=== PATIENT | female | born 1955 | race Caucasian/White ===

== ENCOUNTER → 2016-03-17 | Outpatient (CLI) | payer BC ==
--- NOTE | 2016-03-18 07:58 | MM ---
Reason for exam: screening (asymptomatic). Last mammogram was performed 1 year ago. History: Patient is postmenopausal, has history of high-risk lesion on a previous biopsy at age 47, and history of other cancer. Family history of breast cancer in maternal grandmother at age 72. Benign left mammotome panel of the left breast, May 09, 2008. High risk stereotactic core biopsy of the right breast, December 22, 2002. Core biopsy of the right breast. Excisional biopsy of the right breast. Took hormonal contraceptives for 3 years beginning at age 22. Took tamoxifen for 5 years beginning at age 48. Physical Findings: A clinical breast exam by your physician is recommended on an annual basis and results should be correlated with mammographic findings. MG Screening Mammo w CAD Bilateral CC and MLO view(s) were taken. Prior study comparison: March 06, 2015, right breast MG 3d work up w/cad RT. February 28, 2015, bilateral MG screening mammo w CAD. The breast tissue is extremely dense which could obscure a lesion on mammography. Finding: There is a 5 mm equal density (isodense), obscured oval mass in the right breast. Previous mammotome biopsy in the right and left breast. ASSESSMENT: Incomplete: need additional imaging evaluation, BI-RAD 0 RECOMMENDATION: Special view mammogram of the right breast. If lesion persists on supplemental views, image directed ultrasound is recommended. [facility] will attempt to contact patient to return for supplemental views and ultrasound if indicated.
== END | disposition home or self-care (01) ==
LOC: RADMAMWWP 08:33
PROVIDERS: ATTEND Obstetrics & Gynecology
DX: Z12.31 Encounter for screening mammogram for malignant neoplasm of breast (principal)

== ENCOUNTER → 2016-03-26 | Outpatient (CLI) | payer BC ==
--- NOTE | 2016-03-27 09:06 | MM ---
Reason for exam: additional evaluation requested from abnormal screening. Last mammogram was performed less than 1 month ago. History: Patient is postmenopausal, has history of high-risk lesion on a previous biopsy at age 47, and history of other cancer. Family history of breast cancer in maternal grandmother at age 72. Benign left mammotome panel of the left breast, May 09, 2008. High risk stereotactic core biopsy of the right breast, December 22, 2002. Core biopsy of the right breast. Excisional biopsy of the right breast. Took hormonal contraceptives for 3 years beginning at age 22. Took tamoxifen for 5 years beginning at age 48. Physical Findings: Nurse did not find any significant physical abnormalities on exam. MG Work Up Mamm w CAD RT CC and MLO view(s) were taken of the right breast. Prior study comparison: March 17, 2016, bilateral MG screening mammo w CAD. March 06, 2015, right breast MG 3d work up w/cad RT. The breast tissue is extremely dense which could obscure a lesion on mammography. No persistent density. These results were verbally communicated with the patient and result sheet given to the patient on 03/26/16. ASSESSMENT: Probably benign, BI-RAD 3 RECOMMENDATION: Follow-up diagnostic mammogram of the right breast in 6 months.
== END | disposition home or self-care (01) ==
LOC: RADMAMWWP 15:35
PROVIDERS: ATTEND Obstetrics & Gynecology
DX: R92.8 Other abnormal and inconclusive findings on diagnostic imaging of breast (principal)

== ENCOUNTER → 2016-06-15 | Outpatient (CLI) | payer BC | END | disposition home or self-care (01) | LOC: LABWHC1 14:11 | PROVIDERS: ATTEND Internal Medicine Endocrinology, Diabetes & Metabolism | DX: C73 Malignant neoplasm of thyroid gland (principal) | CPT/HCPCS: 36415; 84432; 84443; 86800 ==

== ENCOUNTER → 2016-09-30 | Outpatient (CLI) | payer BC ==
--- NOTE | 2016-09-30 11:07 | MM ---
Reason for exam: additional evaluation requested from prior study. Last mammogram was performed 6 months ago. History: Patient is postmenopausal, has history of other cancer at age 55, and has history of high-risk lesion on a previous biopsy at age 47. Family history of breast cancer in maternal grandmother at age 72. Benign left mammotome panel of the left breast, May 09, 2008. High risk stereotactic core biopsy of the right breast, December 22, 2002. Core biopsy of the right breast. Excisional biopsy of the right breast. Took hormonal contraceptives for 3 years beginning at age 22. Took tamoxifen for 5 years beginning at age 48. Physical Findings: Nurse did not find any significant physical abnormalities on exam. MG Diagnostic Mammo RT w CAD CC and MLO view(s) were taken of the right breast. Prior study comparison: March 26, 2016, right breast MG work up mamm w CAD RT. March 17, 2016, bilateral MG screening mammo w CAD. March 06, 2015, right breast MG 3d work up w/cad RT. The breast tissue is heterogeneously dense. This may lower the sensitivity of mammography. There are clips in the right breast consistent with known excisional biopsy. There is no discrete abnormality. These results were verbally communicated with the patient and result sheet given to the patient on 09/30/16. ASSESSMENT: Benign, BI-RAD 2 RECOMMENDATION: Return to routine screening mammogram schedule for both breasts. Back on schedule.
== END | disposition home or self-care (01) ==
LOC: RADMAMWWP 09:57
PROVIDERS: ATTEND Obstetrics & Gynecology
DX: R92.8 Other abnormal and inconclusive findings on diagnostic imaging of breast (principal)

== ENCOUNTER → 2016-11-17 | Outpatient (CLI) | payer BC | END | disposition home or self-care (01) | LOC: LABWHC1 07:22 | PROVIDERS: ATTEND Internal Medicine Endocrinology, Diabetes & Metabolism | DX: C73 Malignant neoplasm of thyroid gland (principal) | CPT/HCPCS: 36415; 84443 ==

== ENCOUNTER → 2016-12-01 | Outpatient (CLI) | payer BC ==
--- NOTE | 2016-12-01 12:24 | US ---
EXAMINATION TYPE: US thyroid st tissue head/neck DATE OF EXAM: 12/01/2016 COMPARISON: 07/02/2011 CLINICAL HISTORY: C73 Malignant Neoplasm of Thyroid. Thyroidectomy GLAND SIZE: Right Lobe: Surgically absent Left Lobe: Surgically absent NODULES RIGHT: # of nodules measured on right: 0 LEFT: # of nodules measured on left: 0 ISTHMUS: # of nodules measured in the isthmus: 0 Bilateral neck scanned, thyroid surgically absent. Lymph nodes noted bilaterally, largest on right = 1.3cm and 1.3cm on the left. IMPRESSION: Total thyroidectomy changes without evidence for residual thyroid tissue or mass. Lymph nodes as disc ussed.
== END | disposition home or self-care (01) ==
LOC: RADUSWWP 11:50
PROVIDERS: ATTEND Internal Medicine Endocrinology, Diabetes & Metabolism
DX: C73 Malignant neoplasm of thyroid gland (principal); E89.0 Postprocedural hypothyroidism
CPT/HCPCS: 76536

== ENCOUNTER → 2017-01-28 | Outpatient (CLI) | payer BC ==
--- NOTE | 2017-01-28 20:33 | US ---
EXAMINATION TYPE: US carotid duplex BILAT DATE OF EXAM: 01/28/2017 COMPARISON: NONE CLINICAL HISTORY: R42 VERTIGO. Vertigo, 3 episodes within 6 months EXAM MEASUREMENTS: RIGHT: Peak Systolic Velocity (PSV) cm/sec ----- Right CCA: 102.6 ----- Right ICA: 121.5 ----- Right ECA: 149.6 ICA/CCA ratio: 1.2 RIGHT: End Diastole cm/sec ----- Right CCA: 38.7 ----- Right ICA: 50.3 ----- Right ECA: 33.3 LEFT: Peak Systolic Velocity (PSV) cm/sec ----- Left CCA: 94.7 ----- Left ICA: 99.1 ----- Left ECA: 162.5 ICA/CCA ratio: 1.0 LEFT: End Diastole cm/sec ----- Left CCA: 35.2 ----- Left ICA: 51.2 ----- Left ECA: 38.1 VERTEBRALS (direction of flow): Right Vertebral: Antegrade Left Vertebral: Antegrade Rhythm: Normal Mild plaque bilateral bifurcations. Increased velocities bilateral ECA's. no evidence of significant stenosis IMPRESSION: 1. I DO NOT SEE EVIDENCE OF A HEMODYNAMICALLY SIGNIFICANT STENOSIS IN EITHER INTERNAL OR COMMON CAROT ID ARTERY. 2. ELEVATED FLOW VELOCITIES, BOTH ECAS. Criteria for Assigning % of Stenosis / Diameter reduction (Estimation based on the indirect measurements of the internal carotid artery velocities (ICA PSV). 1. Normal (no stenosis)=ICA PSV < 125 cm/s: ratio < 2.0: ICA EDV<40 cm/s. 2. Less than 50% stenosis=ICA PSV < 125 cm/s: ratio < 2.0: ICA EDV<40 cm/s. 3. 50 to 69% stenosis=ICA PSV of 125 to 230 cm/s: ration 2.0 ? 4.0: ICA EDV 40-100 cm/s. 4. Greater than 70% stenosis to near occlusion= ICA PSV > 230 cm/s: ratio > 4.0: ICA EDV > 100 cm/s. 5. Near occlusion= ICA PSV velocities may be low or undetectable: variable ratio and ICA EDV. 6. Total occlusion=unable to detect flow.
== END | disposition home or self-care (01) ==
LOC: RADUSWWP 16:39
PROVIDERS: ATTEND Family Medicine
DX: R42 Dizziness and giddiness (principal)
CPT/HCPCS: 93880

== ENCOUNTER → 2017-06-22 | Outpatient (CLI) | payer BC ==
--- NOTE | 2017-06-22 08:46 | US ---
EXAMINATION TYPE: US thyroid st tissue head/neck DATE OF EXAM: 06/22/2017 COMPARISON: NONE CLINICAL HISTORY: 62-year-old female C73 MALIGNANT NEOPLASM OF THYROID; total thyroidectomy 2010; fol lowing lymph nodes TECHNIQUE: Multiple sonographic images of the thyroidectomy bed. FINDINGS: GLAND SIZE: Right Lobe: surgically removed Left Lobe: surgically removed Isthmus Thickness: surgically removed No abnormal soft tissue within the thyroidectomy bed. Bilateral neck scanned: oval lymph node is seen left lower lateral neck = 1.2 x 0.7 x 0.5cm. Previous ly measured 1.3 x 0.7 cm. IMPRESSION: Prominent but nonenlarged lower left cervical lymph node measures 1.2 x 0.7 cm versus 1.3 x 0.7 cm, p reviously. The thyroidectomy bed remains clear.
[2017-06-22 17:17] LABS: Thyroglobulin 0.3 ng/mL (1.60-59.90)
== END | disposition home or self-care (01) ==
LOC: RADUSWWP 07:02
PROVIDERS: ATTEND Internal Medicine Endocrinology, Diabetes & Metabolism
DX: C73 Malignant neoplasm of thyroid gland (principal); Z90.89 Acquired absence of other organs; Z98.890 Other specified postprocedural states
CPT/HCPCS: 36415; 76536; 84432; 84443; 86800

== ENCOUNTER → 2017-08-03 | Outpatient (CLI) | payer BC ==
--- NOTE | 2017-08-04 13:52 | MM ---
Reason for exam: screening (asymptomatic). Last mammogram was performed 10 months ago. History: Patient is postmenopausal, has history of other cancer at age 55, and has history of high-risk lesion on a previous biopsy at age 47. Family history of breast cancer in maternal grandmother at age 72. Benign left mammotome panel of the left breast, May 09, 2008. High risk stereotactic core biopsy of the right breast, December 22, 2002. Core biopsy of the right breast. Excisional biopsy of the right breast. Took hormonal contraceptives for 3 years beginning at age 22. Took tamoxifen for 5 years beginning at age 48. Physical Findings: A clinical breast exam by your physician is recommended on an annual basis and results should be correlated with mammographic findings. MG 3D Screening Mammo W/Cad Bilateral CC and MLO view(s) were taken. Prior study comparison: September 30, 2016, right breast MG diagnostic mammo RT w CAD. March 26, 2016, right breast MG work up mamm w CAD RT. The breast tissue is heterogeneously dense. This may lower the sensitivity of mammography. Previous mammotome biopsy in the right breast x 2 and in the left breast. No significant changes when compared with prior studies. ASSESSMENT: Benign, BI-RAD 2 RECOMMENDATION: Routine screening mammogram of both breasts in 1 year.
== END | disposition home or self-care (01) ==
LOC: RADMAMWWP 09:43
PROVIDERS: ATTEND Obstetrics & Gynecology
DX: Z12.31 Encounter for screening mammogram for malignant neoplasm of breast (principal); Z80.3 Family history of malignant neoplasm of breast
CPT/HCPCS: 77063; 77067

== ENCOUNTER → 2017-12-07 | Outpatient (CLI) | payer BC ==
[2017-12-07 14:00] LABS: Calcium 8.9 mg/dL (8.4-10.2); Potassium 4.1 mmol/L (3.5-5.1); Total Bilirubin 0.4 mg/dL (0.2-1.3); Total Protein 6.5 g/dL (6.3-8.2)
--- NOTE | 2017-12-07 17:56 | US ---
EXAMINATION TYPE: US thyroid st tissue head/neck DATE OF EXAM: 12/07/2017 COMPARISON: Previous exam 06/22/2017 CLINICAL HISTORY: C73 MALIGNANT NEOPLASM OF THYROID GLAND. Total thyroidectomy 2010 No abnormal soft tissue within the thyroidectomy bed. Bilateral neck scanned, no evidence of lymphadenopathy. Lymph node noted measuring1.1 x 0.4 x 0.7cm, stable in the lower cervical region IMPRESSION: Status post thyroidectomy.
[2017-12-07 18:57] LABS: Vitamin D 25 Hydroxy 47.4 ng/mL (30.0-100.0)
[2017-12-07 20:16] LABS: Parathyroid Hormone Intact 17.9 pg/mL (14.0-72.0)
[2017-12-07 22:16] LABS: Thyroglobulin <0.20 ng/mL (1.60-59.90)
== END | disposition home or self-care (01) ==
LOC: RADUSWWP 12:30
PROVIDERS: ATTEND Internal Medicine Endocrinology, Diabetes & Metabolism
DX: C73 Malignant neoplasm of thyroid gland (principal); E83.51 Hypocalcemia; E89.0 Postprocedural hypothyroidism
CPT/HCPCS: 76536; 80053; 82306; 83970; 84432; 84443; 86800

== ENCOUNTER → 2018-06-24 | Outpatient (CLI) | payer BC ==
[2018-06-24 20:54] LABS: Thyroglobulin <0.20 ng/mL (1.60-59.90)
== END | disposition home or self-care (01) ==
LOC: LABWHC1 09:19
PROVIDERS: ATTEND Internal Medicine Endocrinology, Diabetes & Metabolism
DX: C73 Malignant neoplasm of thyroid gland (principal)
CPT/HCPCS: 36415; 84432; 84443; 86800

== ENCOUNTER → 2019-01-27 | Outpatient (CLI) | payer BC ==
--- NOTE | 2019-01-27 13:48 | MM ---
Reason for exam: screening (asymptomatic). Last mammogram was performed 1 year and 6 months ago. History: Patient is postmenopausal, has history of other cancer at age 55, and has history of high-risk lesion on a previous biopsy at age 47. Family history of breast cancer in maternal grandmother at age 72. Benign left mammotome panel of the left breast, May 09, 2008. High risk stereotactic core biopsy of the right breast, December 22, 2002. Core biopsy of the right breast. Excisional biopsy of the right breast. Took hormonal contraceptives for 3 years beginning at age 22. Took tamoxifen for 5 years beginning at age 48. Physical Findings: A clinical breast exam by your physician is recommended on an annual basis and results should be correlated with mammographic findings. MG 3D Screening Mammo W/Cad Bilateral CC and MLO view(s) were taken. Prior study comparison: August 03, 2017, bilateral MG 3d screening mammo w/cad. September 30, 2016, right breast MG diagnostic mammo RT w CAD. The breast tissue is heterogeneously dense. This may lower the sensitivity of mammography. No suspicious abnormality. Post surgical change on the right. Left biopsy marker noted. No significant changes when compared with prior studies. ASSESSMENT: Benign, BI-RAD 2 RECOMMENDATION: Routine screening mammogram of both breasts in 1 year.
== END ==
LOC: RADMAMWWP 07:01
PROVIDERS: ATTEND Obstetrics & Gynecology
DX: Z12.31 Encounter for screening mammogram for malignant neoplasm of breast (principal)
CPT/HCPCS: 77063; 77067

== ENCOUNTER → 2019-09-19 | Outpatient (CLI) | payer BC | END | disposition home or self-care (01) | LOC: LABWHC1 08:42 | PROVIDERS: ATTEND Internal Medicine Endocrinology, Diabetes & Metabolism | DX: C73 Malignant neoplasm of thyroid gland (principal) | CPT/HCPCS: 36415; 84432; 84443; 86800 ==

== ENCOUNTER → 2019-09-29 | Outpatient (CLI) | payer BC ==
--- NOTE | 2019-09-29 15:58 | US ---
EXAMINATION TYPE: US thyroid st tissue head/neck DATE OF EXAM: 09/29/2019 COMPARISON: CLINICAL HISTORY: C73 Malignant neoplasm of thyroid gland. Total thyroidectomy 2010 GLAND SIZE: Right Lobe: Surgically absent Left Lobe: Surgically absent Isthmus Thickness: Surgically absent Bilateral neck scanned, no evidence of lymphadenopathy. IMPRESSION: 1. No recurrent masses or abnormal adenopathy thyroid bed
== END | disposition home or self-care (01) ==
LOC: RADUSWWP 15:25
PROVIDERS: ATTEND Internal Medicine Endocrinology, Diabetes & Metabolism
DX: C73 Malignant neoplasm of thyroid gland (principal)
CPT/HCPCS: 76536

== ENCOUNTER → 2020-02-23 | Outpatient (CLI) | payer BC ==
--- NOTE | 2020-02-23 13:30 | MM ---
Reason for exam: additional evaluation requested from prior study. Last mammogram was performed 1 year and 1 month ago. History: Patient is postmenopausal, has history of other cancer at age 55, and has history of high-risk lesion on a previous biopsy at age 47. Family history of breast cancer in maternal grandmother at age 72. Benign left mammotome panel of the left breast, May 09, 2008. High risk stereotactic core biopsy of the right breast, December 22, 2002. Core biopsy of the right breast. Excisional biopsy of the right breast. Took hormonal contraceptives for 3 years beginning at age 22. Took tamoxifen for 5 years beginning at age 48. Physical Findings: Nurse did not find any significant physical abnormalities on exam. MG 3D Diag Mammo W/Cad CHARI Bilateral CC and MLO view(s) were taken. Prior study comparison: January 27, 2019, bilateral MG 3d screening mammo w/cad. August 03, 2017, bilateral MG 3d screening mammo w/cad. The breast tissue is heterogeneously dense. This may lower the sensitivity of mammography. Finding: There is an intermediate concern, suspicious high density, circumscribed lobulated mass located 9 cm from the nipple in the upper outer quadrant, posterior position of the right breast persistent on compression. Previous mammotome biopsy in the left breast. Post surgical changes right breast. These results were verbally communicated with the patient and result sheet given to the patient on 02/23/20. ASSESSMENT: Incomplete: need additional imaging evaluation, BI-RAD 0 RECOMMENDATION: Ultrasound of the right breast.
--- NOTE | 2020-02-23 13:32 | USB ---
Reason for exam: additional evaluation requested from abnormal screening. History: Patient is postmenopausal, has history of other cancer at age 55, and has history of high-risk lesion on a previous biopsy at age 47. Family history of breast cancer in maternal grandmother at age 72. Benign left mammotome panel of the left breast, May 09, 2008. High risk stereotactic core biopsy of the right breast, December 22, 2002. Core biopsy of the right breast. Excisional biopsy of the right breast. Took hormonal contraceptives for 3 years beginning at age 22. Took tamoxifen for 5 years beginning at age 48. US Breast Limited RT Right limited breast ultrasound including focal area of concern, retroareolar and axilla demonstrates a 0.7 x 0.4 x 0.4cm taller than wide, shaggy, solid, hypoechoic lesion at 10 o'clock, posterior shadowing, large vessel adjacent. These results were verbally communicated with the patient and result sheet given to the patient on 02/23/20. ASSESSMENT: Highly suggestive of malignancy, BI-RAD 5 RECOMMENDATION: Surgical consultation and localization and excision of the right breast. Called Dr. Corbin's office with mammographic findings and has scheduled an appointment for the patient for 02/29/20 at 8:[address] Camp. PRELIMINARY REPORT CALLED AND FAXED TO DR. CAMP ON 02/23/20.
== END | disposition home or self-care (01) ==
LOC: RADMAMWWP 10:06
PROVIDERS: ATTEND Obstetrics & Gynecology
DX: R92.8 Other abnormal and inconclusive findings on diagnostic imaging of breast (principal); Z85.3 Personal history of malignant neoplasm of breast
CPT/HCPCS: 77062; 77066

== ENCOUNTER 2020-03-11 06:05 | Day surgery (SDC) | payer BC ==
[2020-03-05 09:31] VITALS: BMI 24.5
[~2020-03-11 06:05] MED LIST: ACETAMINOPHEN TAB 500 MG TAB PO PRN; DEXAMETHASONE SOD PHOSPHATE 4 MG/ML 1 ML VIAL IV ONE; HEPARIN SODIUM,PORCINE 5,000 UNIT/ML 1 ML VIAL SQ PRN; LACTATED RINGERS 1,000 ML IV SCH; MIDAZOLAM 2 MG/2 ML VIAL IV PRN; ONDANSETRON 4 MG/2 ML VIAL IVP ONE; Pre Op ABX Message 1 EACH MISC MISCELLANE ONE; SCOPOLAMINE 1.5MG/72HR PATCH TRANSDERM ONE
[2020-03-11] MEDS ORDERED: ALPRAZolam 0.5 MG TAB ONE (06:55)
[2020-03-11] MEDS ORDERED: fentaNYL (PF) 50 MCG/ML 2 ML AMP IV PRN (07:00)
[2020-03-11] MEDS ORDERED: LIDOCAINE 1% INJ 10MG/ML (20 ML MDV) SQ ONE (07:54)
[2020-03-11] MEDS ORDERED: LIDOCAINE 1%-EPI 1:100,000 20 ML VIAL SQ ONE ×2 (07:55→09:10)
[2020-03-11] MEDS ORDERED: MIDAZOLAM 2 MG/2 ML VIAL ONE (09:00)
[2020-03-11] MEDS ORDERED: PROPOFOL 10 MG/ML 20 ML VIAL IV ONE (09:00)
[2020-03-11] MEDS ORDERED: ePHEDrine SULFATE/0.9% NACL/PF 50 MG/5 ML SYRINGE IV ONE (09:00)
[2020-03-11] MEDS ORDERED: LIDOCAINE 1% INJ 10MG/ML (20 ML MDV) ONE (09:00)
[2020-03-11] MEDS ORDERED: fentaNYL (PF) 50 MCG/ML 2 ML AMP ONE (09:00)
[2020-03-11] MEDS ORDERED: NALOXONE 0.4 MG/ML 1 ML VIAL IV PRN (09:57)
--- NOTE | 2020-03-11 09:59 | P.PCN ---
Date of Procedure: 03/11/20 Procedure(s) Performed: PREOPERATIVE DIAGNOSIS: Abnormal right mammogram POSTOPERATIVE DIAGNOSIS: Same PROCEDURE: 8 Breast wire localization biopsy SURGEON: Zoë EBL: Minimal ANESTHESIA: Sedation plus local COMPLICATIONS: None OPERATIVE PROCEDURE: Patient was placed on the operating room table in the supin e position. The patient's breast was prepped and draped in usual sterile fashion. A curvilinear incision was made adjacent to the wire entrance site at the 9 o'clock position laterally. I followed the wire down into the breast tissue. The breast tissue around the tip of the wire was fully excised using electrocautery. The specimen was painted the appropriate 6 colors. The specimen was sent for specimen radiogram. The abnormality was present within the specimen. The subcutaneous tissues were inspected. No bleeding was seen. The subcutaneous tissues were closed using 3-0 Vicryl sutures. The skin was closed using a running 4-0 Monocryl stitch. Skin glue and sterile dressings were applied. DISPOSITION: Stable to recovery room
[2020-03-11 10:07] VITALS: TEMP 97.4
--- NOTE | 2020-03-11 10:28 | USB ---
EXAM: Needle localization with wire placement. CLINICAL HISTORY: Abnormal mammogram and ultrasound. TECHNIQUE: Needle localization with wire placement and surgical excision of area of concern in the right breast. COMPARISON: Prior mammogram and ultrasound February 23, 2020 and older studies. FINDINGS: The procedure of needle localization with wire placement and than surgical excision was explained to the patient. Benefits, alternatives, and risks were discussed. An informed consent was then obtained. Ultrasound localization chosen as lesion seen best on ultrasound and far posterior on mammogram. Preprocedure ultrasound redemonstrates a taller greater than wide lobulated hypoechoic lesion with some posterior shadowing and adjacent vascularity o'clock position zone BC The overlying skin was prepped and draped in usual sterile fashion. Lidocaine is used as anesthetic into the skin and subcutaneous tissue. Lidocaine with epinephrine is used as anesthetic in the deeper tissue at level of area of concern. A 5 cm needle was used. It was placed via ultrasound guidance. Wire was placed and the needle was withdrawn under ultrasound guidance. The wire was fixed to patient's skin. Post procedure mammogram performed with wire tip corresponding to lesion of concern marked posterior aspect of mammogram. The patient tolerated the procedure well without any immediate complication. The patient was kept in the radiology department for short stay after the procedure and then taken to surgery for surgical excision. Targeted wire and lesion are identified in specimen mammogram. The patient was kept in hospital for short stay after the procedure and then discharged home in stable condition. IMPRESSION: Successful, uncomplicated needle localization with wire placement and surgical excision of suspicious mammogram and ultrasound lesion in the right breast, full pathology results to follow. Intermediate to high index of suspicion noted at time of procedure. 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 See Surgical Pathology Cancer Case Summary. Recommendation Surgical consult of the right breast. SULEIMAN
[2020-03-11 11:01] VITALS: RESP 20
[2020-03-11 11:17] VITALS: BP 108/68; PULSE 69
== END 2020-03-11 11:43 | disposition home or self-care (01) ==
LOC: OR 06:05
PROVIDERS: ATTEND Surgery
DX: C50.911 Malignant neoplasm of unspecified site of right female breast (principal); Z17.0 Estrogen receptor positive status [ER+]; Z80.3 Family history of malignant neoplasm of breast; Z85.820 Personal history of malignant melanoma of skin; Z85.850 Personal history of malignant neoplasm of thyroid; Z90.710 Acquired absence of both cervix and uterus; E89.0 Postprocedural hypothyroidism; Z90.49 Acquired absence of other specified parts of digestive tract; Z98.890 Other specified postprocedural states; Z90.89 Acquired absence of other organs; Z79.890 Hormone replacement therapy; Z79.899 Other long term (current) drug therapy
CPT/HCPCS: 19125; 19285; 77065; 76098; J2250; J1644; J1100; J0690; J2405; J2001; J3010; J2704; 88307; 88342

== ENCOUNTER 2020-04-19 06:32 | Day surgery (SDC) | payer OTHER, BC ==
[2020-04-18 09:16] VITALS: BMI 25.0
--- NOTE | 2020-04-18 15:49 | P.HPADDEND ---
H&P Addendum H&P Addendum Date: 04/18/20 No changes to the recent history and physical. We'll proceed with right breast re-lumpectomy, sentinel lymph node biopsy/injection tomorrow. Risks of bleeding, infection, scarring, positive margins, possible need for further surgery, nerve injury, numbness, lymphedema, weakness, seroma reviewed. She u nderstands wished to proceed.
--- NOTE | 2020-04-18 15:51 | P.NAPBC ---
[facility] - [facility] Was patient's case review presented at [facility] tumor board? If no, comment.: Yes Was patient's pathology reviewed at [facility]? If no, comment.: Yes Was breast conservation surgery offered? If no, comment.: Yes Was sentinel node biopsy offered? If no, comment.: Yes Was diagnosis confirmed by percutaneous core biopsy? If no, comment.: No (Diagnosis by lumpectomy secondary to adjacent large vessel) Is patient mastectomy patient?: No Was a preop referral to reconstructive surgeon offered?: Yes [facility] Comments: 1a Clinical Stage: 1a
[~2020-04-19 06:32] MED LIST changes: -ONDANSETRON 4 MG/2 ML VIAL IVP ONE
[2020-04-19] MEDS ORDERED: ALPRAZolam 0.5 MG TAB ONE (07:35)
[2020-04-19] MEDS ORDERED: ALPRAZolam 0.5 MG TAB PO ONE (07:36)
[2020-04-19] MEDS: ONDANSETRON 4 MG/2 ML VIAL IVP ONE ×2 (07:56→12:31)
[2020-04-19] MEDS ORDERED: ACETAMINOPHEN TAB 500 MG TAB ONE (07:58)
--- NOTE | 2020-04-19 08:40 | NM ---
EXAMINATION TYPE: NM sentinel node injection DATE OF EXAM: 04/19/2020 COMPARISON: NONE HISTORY: Right breast CA TECHNIQUE AND FINDINGS: The procedure of sentinel lymph node injection was explained to the patient. The benefits, alternatives, and risks were discussed. An informed consent was then obtained. Overlying skin is cleaned with sterile alcohol. Following this, 515 uCi Tc99m Tilmanocept was inject ed in the upper outer aspect of the right nipple intradermally. The patient tolerated the procedure well without any immediate complication. The patient was kept in the radiology department for short stay after the procedure and then taken to surgery for surgical p rocedure what is presumed intraoperative gamma probe will be used for sentinel lymph node detection. IMPRESSION: Right breast radiotracer injection for sentinel node localization as above.
[2020-04-19] MEDS ORDERED: ePHEDrine SULFATE/0.9% NACL/PF 50 MG/5 ML SYRINGE IV ONE (10:01)
[2020-04-19] MEDS ORDERED: PROPOFOL 10 MG/ML 20 ML VIAL IV ONE (10:01)
[2020-04-19] MEDS ORDERED: fentaNYL (PF) 50 MCG/ML 2 ML AMP ONE (10:01)
[2020-04-19] MEDS ORDERED: SODIUM CHLORIDE 0.9% 50 ML with ceFAZolin 2,000 MG IV ONE ×2 (10:01)
[2020-04-19] MEDS ORDERED: ROCURONIUM 10 MG/ML (10 ML VIAL) IV ONE (10:01)
[2020-04-19] MEDS ORDERED: SUCCINYLCHOLINE CHLORIDE 100 MG/5 ML SYR IV ONE (10:01)
[2020-04-19] MEDS ORDERED: GLYCOPYRROLATE 0.2 MG/ML 2 ML VIAL ONE (10:01)
[2020-04-19] MEDS ORDERED: MIDAZOLAM 2 MG/2 ML VIAL ONE (10:01)
[2020-04-19] MEDS ORDERED: LIDOCAINE 1% INJ 10MG/ML (20 ML MDV) ONE (10:01)
[2020-04-19] MEDS ORDERED: LACTATED RINGERS 1,000 ML IV ONE ×2 (10:46→13:02)
[2020-04-19 11:42] VITALS: RESP 16; TEMP 97
[2020-04-19] MEDS ORDERED: ONDANSETRON 4 MG/2 ML VIAL IVP PRN (11:45)
[2020-04-19] MEDS ORDERED: HYDROcodone/APAP 5-325MG 1 EACH TAB PO PRN (11:45)
[2020-04-19] MEDS ORDERED: NALOXONE 0.4 MG/ML 1 ML VIAL IV PRN (11:45)
--- NOTE | 2020-04-19 11:51 | P.OP ---
Date of Procedure: 04/19/20 Procedure(s) Performed: PREOPERATIVE DIAGNOSIS: Right breast cancer POSTOPERATIVE DIAGNOSIS: Same PROCEDURE: Right Breast relumpectomy with sentinel lymph node biopsy SURGEON: Zoë EBL: Minimal ANESTHESIA: General COMPLICATIONS: None OPERATIVE PROCEDURE: Patient was placed on the operating room table in the supine position. 2 mL of methylene blue was injected into the subareolar space. The breast was then massaged for 5 minutes. The breast was prepped and draped in usual sterile fashion. The right axilla was addressed at that time. The hot spot in the right axilla was identified. The patient's previous lumpectomy scar was present in the lateral aspect of her breast. The hot spot was present only a few centimeters superior to our previous scar site. I decided to re-excise the patient's previous lumpectomy scar and extending the incision superiorly by 2 cm. The subcutaneous tissues were divided using electrocautery. Using the neoprobe I identified a total of 2 sentinel lymph nodes. Neither of these were blue in color. The first lymph node was fairly large measuring approximately 2- 3 cm. The second lymph node was appropriately sized. Both percent for frozen section. Later we learned that both were negative for metastatic disease. Through the same incision a lumpectomy took place. Circumferential margins were taken. The specimen was not painted. Clips were used to identify the lumpectomy cavity. The subcutaneous tissues were closed using 3-0 Vicryl sutures. The skin was closed using a running 4-0 Monocryl stitch. Skin glue and sterile dressings were then applied. DISPOSITION: Stable to recovery room
[2020-04-19] MEDS: fentaNYL (PF) 50 MCG/ML 2 ML AMP IV PRN ×3 (12:10→12:36)
[2020-04-19] MEDS ORDERED: HYDROmorphone 0.5 MG/0.5 ML SYRINGE IVP ONE (13:01)
[2020-04-19 14:02] VITALS: BP 120/68; PULSE 57
== END 2020-04-19 14:10 | disposition home or self-care (01) ==
LOC: OR 06:32
PROVIDERS: ATTEND Surgery
DX: C50.911 Malignant neoplasm of unspecified site of right female breast (principal); E89.0 Postprocedural hypothyroidism; F41.9 Anxiety disorder, unspecified; F32.9 Major depressive disorder, single episode, unspecified; K21.9 Gastro-esophageal reflux disease without esophagitis; Z90.710 Acquired absence of both cervix and uterus; Z90.89 Acquired absence of other organs; Z98.890 Other specified postprocedural states; Z90.49 Acquired absence of other specified parts of digestive tract; Z79.890 Hormone replacement therapy; Z79.899 Other long term (current) drug therapy; Z91.048 Other nonmedicinal substance allergy status; Z88.5 Allergy status to narcotic agent
CPT/HCPCS: 88342; 88331; 88332; 88307; 88341; 38792; 19301; 38525; A9520; J2250; J1644; J1100; J2405; J0690; J2001; J3010; J0330; J2704; J1170

== ENCOUNTER → 2020-05-17 | Outpatient (CLI) | payer OTHER, BC ==
--- NOTE | 2020-05-20 10:15 | USB ---
Reason for exam: clinical finding. History: Patient is postmenopausal, has history of breast cancer at age 65, has history of other cancer at age 55, and has history of high-risk lesion on a previous biopsy at age 47. Family history of breast cancer in maternal grandmother at age 72. Malignant US breast localization RT of the right breast, March 11, 2020. Benign left mammotome panel of the left breast, May 09, 2008. High risk stereotactic core biopsy of the right breast, December 22, 2002. Core biopsy of the right breast. Excisional biopsy of the right breast. Took hormonal contraceptives for 3 years beginning at age 22. Took tamoxifen for 5 years beginning at age 48. Physical Findings: Nurse Summary: edema in right axilla x 3 weeks since surgery (nurse dw). US Breast Axilla RT Right breast axilla ultrasound demonstrates a 4.4 x 3.9 x 3.4cm cystic lesion at the axilla, fluid like, possible hematoma, lymphocele. These results were verbally communicated with the patient and result sheet given to the patient on 05/17/20. ASSESSMENT: Probably benign, BI-RAD 3 RECOMMENDATION: Clinical management of the right breast. Manage patient on a clinical basis.
== END ==
LOC: RADUSWWP 15:33
PROVIDERS: ATTEND Surgery
DX: N60.01 Solitary cyst of right breast (principal); Z85.3 Personal history of malignant neoplasm of breast; Z80.3 Family history of malignant neoplasm of breast; Z78.0 Asymptomatic menopausal state

== ENCOUNTER → 2020-09-03 | Outpatient (CLI) | payer OTHER, BC ==
--- NOTE | 2020-09-03 10:32 | BD ---
EXAMINATION TYPE: Axial Bone Density DATE OF EXAM: 09/03/2020 COMPARISON: NONE CLINICAL HISTORY: Height: 5 FT 6 IN Weight: 159 FRAX RISK QUESTIONS: Alcohol (3 or more units per day): NO Family History (Parent hip fracture): NO Glucocorticoids (More than 3mos): NO (Ex: prednisone, prednisolone, methylprednisolone, dexamethasone, and hydrocortisone). History of Fracture in Adulthood: NO Secondary Osteoporosis: 1. Type 1 Diabetes: NO 2. Hyperthyroidism: REMOVER FROM CANCER 3. Menopause before 45: NO 4. Malnutrition: NO 5. Chronic liver disease: NO Rheumatoid Arthritis: NO Current Tobacco Use: NO RISK FACTORS HISTORY OF: Surgery to Spine/Hip(right/left)/Wrist (right/left): NO Family History of Osteoporosis: NO Active: YES Diet low in dairy products/other sources of calcium: NO Postmenopausal woman: AGE 54 Take estrogen and/or progesterone medications: NONE Lost more than 2 inches in height since high school: NO MEDICATIONS: Thyroid Medications: YES Which medication: SYNTHROID How Lon YEARS Additional Medications: SYNTHROID, LEXAPRO, ARIMIDEX Additional History: BREAST CANCER 2019 RADIATION EXAM MEASUREMENTS: Bone mineral densitometry was performed using the [email or web address] System. Bone mineral density as measured about the Lumbar spine is: ----- L1-L4(G/cm2): 1.098 T Score Values are as follows: ----- L2: -1.2 ----- L3: -0.4 ----- L4: -0.2 ----- L1-L4: -0.7 Bone mineral density has: INCREASED 1.4 % since study of: 2002 Bone mineral density about the R hip (g/cm2): 0.961 Bone mineral density about the L hip (g/cm2): 0.883 T Score values are as follows: -----R Neck: -0.6 -----L Neck: -1.1 -----R Total: 0.3 -----L Total: -0.2 Bone mineral density has: DECREASED -10.1 % since study of: 2002 IMPRESSION: Normal bone mineral density. NOTE: T-SCORE=SD OF THE YOUNG ADULT MEAN.
== END | disposition home or self-care (01) ==
LOC: RADBDWWP 09:09
PROVIDERS: ATTEND Internal Medicine Hematology & Oncology
DX: Z85.3 Personal history of malignant neoplasm of breast (principal)
CPT/HCPCS: 77080

== ENCOUNTER → 2021-02-17 | Outpatient (CLI) | payer OTHER, BC ==
--- NOTE | 2021-02-17 13:53 | MM ---
Reason for exam: additional evaluation requested from prior study. Last mammogram was performed 11 months ago. History: Patient is postmenopausal, has history of breast cancer at age 65, has history of other cancer at age 64, and has history of high-risk lesion on a previous biopsy at age 47. Family history of breast cancer in maternal grandmother at age 72. Malignant US breast localization RT of the right breast, March 11, 2020. Benign left mammotome panel of the left breast, May 09, 2008. High risk stereotactic core biopsy of the right breast, December 22, 2002. Core biopsy of the right breast. Excisional biopsy of the right breast. Took hormonal contraceptives for 3 years beginning at age 22. Took tamoxifen for 5 years beginning at age 48. Physical Findings: Nurse did not find any significant physical abnormalities on exam. MG 3D Diag Mammo W/Cad CHARI Bilateral CC and MLO view(s) were taken. XCCL view(s) were taken of the right breast. Prior study comparison: March 11, 2020, right breast MG diagnostic mammo RT wo CAD. February 23, 2020, bilateral MG 3d diag mammo w/cad CHARI. The breast tissue is heterogeneously dense. This may lower the sensitivity of mammography. No suspicious calcifications are seen. Post lumpectomy. No significant new findings when compared with previous films. These results were verbally communicated with the patient and result sheet given to the patient on 02/17/21. ASSESSMENT: Benign, BI-RAD 2 RECOMMENDATION: Follow-up diagnostic mammogram of both breasts in 1 year.
== END | disposition home or self-care (01) ==
LOC: RADMAMWWP 12:56
PROVIDERS: ATTEND Surgery
DX: R92.2 Inconclusive mammogram (principal); Z78.0 Asymptomatic menopausal state; Z80.3 Family history of malignant neoplasm of breast; Z85.3 Personal history of malignant neoplasm of breast
CPT/HCPCS: 77062; 77066

== ENCOUNTER → 2021-09-22 | Outpatient (CLI) | payer OTHER, BC ==
--- NOTE | 2021-09-22 15:20 | XR ---
EXAMINATION TYPE: XR ribs bilateral DATE OF EXAM: 09/22/2021 3:00 PM INDICATION: Patient age:Female; 66 years old; Reason for study: C50.411, Z17.0, C43.9, C73; H. COMPARISON: None TECHNIQUE: Frontal and oblique views of the bilateral ribs with a total of 8 images obtained. FINDINGS: Nondisplaced right seventh and eighth lateral rib fractures with surrounding callus formati on. Nondisplaced left seventh and eighth lateral rib fractures without surrounding callus formation. No evidence of fracture. Overall, the lungs are clear. The cardiac silhouette is normal in size. Cobb rgical clips overlie the right breast. The remaining osseous structures are intact. Degenerative stephens ges of the visualized spine. Cholecystectomy clips in the right upper quadrant. IMPRESSION RIBS: Nondisplaced acute/subacute left seventh and eighth rib lateral fractures without definite calcificat ion. Additional healing nondisplaced right seventh and eighth rib fractures with callus formation.
== END | disposition home or self-care (01) ==
LOC: RADXRMAIN 14:37
PROVIDERS: ATTEND Registered Nurse Oncology
DX: C50.411 Malignant neoplasm of upper-outer quadrant of right female breast (principal); C43.9 Malignant melanoma of skin, unspecified; C73 Malignant neoplasm of thyroid gland; Z17.0 Estrogen receptor positive status [ER+]
CPT/HCPCS: 71110

== ENCOUNTER → 2021-12-03 | Outpatient (CLI) | payer OTHER, BC ==
--- NOTE | 2021-12-03 13:43 | XR ---
EXAMINATION TYPE: XR ribs bilateral DATE OF EXAM: 12/03/2021 COMPARISON: 09/22/2021 HISTORY: History of lower rib fractures TECHNIQUE: 2 view right RIBS FINDINGS: Surgical clips are within the axillary region and right breast. No acute fracture of the ri bs are evident. There is subacute healing fractures of the eighth and ninth and possibly seventh ribs IMPRESSION: 1. Incomplete healing of the ninth rib fracture. Eighth rib fracture does not appear to have signifi cant callus formation.
== END | disposition home or self-care (01) ==
LOC: RADXRMAIN 12:57
PROVIDERS: ATTEND Internal Medicine Hematology & Oncology
DX: C50.411 Malignant neoplasm of upper-outer quadrant of right female breast (principal); S22.49XD Multiple fractures of ribs, unspecified side, subsequent encounter for fracture with routine healing; C43.9 Malignant melanoma of skin, unspecified; C73 Malignant neoplasm of thyroid gland; Z17.0 Estrogen receptor positive status [ER+]
CPT/HCPCS: 71110

== ENCOUNTER → 2022-02-18 | Outpatient (CLI) | payer MEDICARE, OTHER ==
--- NOTE | 2022-02-18 11:33 | MM ---
Reason for Exam: Known biopsy proven malignancy. Last screening mammogram was performed 12 month(s) ago. Patient History: Menarche at age 17. First Full-Term at age 26. Hysterectomy at age 43. Postmenopausal. Patient has history of breast feeding. Breast cancer, age 65. Previous chest radiation therapy at age 65. Hormonal Contraceptives for 3 years from age 22 until age 25. Tamoxifen for 5 years from age 48 until age 53. Core Biopsy on the Right side. Excisional Biopsy on the Right side. 03/11/2020, Malignant Core Biopsy on the right side. 05/09/2008, Benign Core Biopsy on the left side. 12/22/2002, High risk Stereotactic Core Biopsy on the right side. Maternal grandmother had breast cancer, age 72. Prior Study Comparison: 02/28/2015 Bilateral Screening Mammogram, [facility]. 03/06/2015 Right Diagnostic Mammogram, [facility]. 03/17/2016 Bilateral Screening Mammogram, [facility]. 03/26/2016 Right Diagnostic Mammogram, [facility]. 09/30/2016 Right Diagnostic Mammogram, [facility]. 08/03/2017 Bilateral Screening Mammogram, [facility]. 01/27/2019 Bilateral Screening Mammogram, [facility]. 02/23/2020 Bilateral Diagnostic Mammogram, [facility]. 02/23/2020 Right Diagnostic Ultrasound, [facility]. 03/11/2020 Right Diagnostic Mammogram, [facility]. 05/17/2020 Right Diagnostic Ultrasound, [facility]. 02/17/2021 Bilateral Diagnostic Mammogram, [facility]. Tissue Density: The breast tissue is heterogeneously dense. This may lower the sensitivity of mammography. Findings: Analyzed By CAD. No suspicious masses, calcifications or distortions. Overall Assessment: Benign, BI-RAD 2 Management: Screening Mammogram of both breasts in 1 year. A clinical breast exam by your physician is recommended on an annual basis and results should be correlated with mammographic findings. This exam should not preclude additional follow-up of suspicious palpable abnormalities. Results were given to the patient verbally at the time of exam. Electronically signed and approved by: Errol Kebede DO
== END | disposition home or self-care (01) ==
LOC: RADMAMWWP 09:30
PROVIDERS: ATTEND Radiology Radiation Oncology
DX: C50.411 Malignant neoplasm of upper-outer quadrant of right female breast (principal); Z78.0 Asymptomatic menopausal state; Z80.3 Family history of malignant neoplasm of breast; Z98.890 Other specified postprocedural states
CPT/HCPCS: 77066; G0279; 77062

== ENCOUNTER → 2022-09-10 | Outpatient (CLI) | payer MEDICARE ==
--- NOTE | 2022-09-10 15:20 | BD ---
EXAMINATION TYPE: Axial Bone Density DATE OF EXAM: 09/10/2022 CLINICAL HISTORY: 67 year old Female. ICD-10 CODE: C50.411 MALIG NEOPLM OF UPPER-OUTER QUADRANT OF R I Height: 65.5 Weight: 149.0 FRAX RISK QUESTIONS: Alcohol (3 or more units per day): no Family History (Parent hip fracture): no Glucocorticoids (More than 3mos): no (Ex: prednisone, prednisolone, methylprednisolone, dexamethasone, and hydrocortisone). History of Fracture in Adulthood: yes Secondary Osteoporosis: 1. Type 1 Diabetes: no 2. Hyperthyroidism: no 3. Menopause before 45: yes 4. Malnutrition: no 5. Chronic liver disease: no Rheumatoid Arthritis: no Current Tobacco Use: no RISK FACTORS HISTORY OF: Surgery to Spine/Hip(right/left)/Wrist (right/left): no Family History of Osteoporosis: no Active: yes Diet low in dairy products/other sources of calcium: yes Postmenopausal woman: yes Lost more than 2 inches in height since high school: no MEDICATIONS: Additional History: EXAM MEASUREMENTS: Bone mineral densitometry was performed using the [employer] System. Bone mineral density as measured about the Lumbar spine is: ----- L1-L4(G/cm2): 1.029 T Score Values are as follows: ----- L1: -2.1 ----- L2: -1.6 ----- L3: -0.9 ----- L4: -1.8 ----- L1-L4: -1.3 Z Score Values are as follows: ----- L1: -0.6 ----- L2: -0.1 ----- L3: 0.6 ----- L4: 0.7 ----- L1-L4: 0.2 Bone mineral density has: decreased -6.3 % since study of: 09.03.2020 Bone mineral density about the R hip (g/cm2): 0.975 Bone mineral density about the L hip (g/cm2): 0.910 T Score values are as follows: -----R Neck: -0.8 -----L Neck: -1.3 -----R Total: -0.3 -----L Total: -0.8 Z Score values are as follows: -----R Neck: 0.7 -----L Neck: 0.1 -----R Total: 0.9 -----L Total: 0.4 Bone mineral density has: decreased -7.2% since study of: 6..2020 FRAX%s: The graph provided illustrates a 13.8% chance for a major osteoporotic fx and a 1.3% chance f or the hips probability for fx in 10 years time. IMPRESSION: Osteopenia (T Score between -2.5 and -1). There is slightly increased risk of fracture and the patient may be considered for treatment. Re-Screen 2-5 years. NOTE: T-SCORE=SD OF THE YOUNG ADULT MEAN.
== END | disposition home or self-care (01) ==
LOC: RADBDWWP 14:30
PROVIDERS: ATTEND Internal Medicine Hematology & Oncology
DX: C50.411 Malignant neoplasm of upper-outer quadrant of right female breast (principal); C73 Malignant neoplasm of thyroid gland; C43.9 Malignant melanoma of skin, unspecified; M85.89 Other specified disorders of bone density and structure, multiple sites; Z17.0 Estrogen receptor positive status [ER+]; Z78.0 Asymptomatic menopausal state
CPT/HCPCS: 77080

== ENCOUNTER → 2022-09-11 | Outpatient (CLI) | payer MEDICARE ==
[2022-09-11 10:17] LABS: African American GFR (CKD) 86 (>60 ml/min/1.73 sqM); Blood Urea Nitrogen 20 mg/dL (7-17); Non-African American GFR(CKD) 75 (>60 ml/min/1.73 sqM)
--- NOTE | 2022-09-13 18:50 | CT ---
EXAMINATION TYPE: CT abdomen w con DATE OF EXAM: 09/11/2022 COMPARISON: None INDICATION: Upper abdominal pain history of breast and thyroid cancer DLP: 370.1 mGycm, Automated exposure control for dose reduction was used. CONTRAST: 100 mL of Isovue 300. Study performed with Oral Contrast TECHNIQUE: Axial images were obtained from above the diaphragm to the pubic rami in the axial plane a t 5 mm thick sections. Reconstructed images are reviewed on the computer in the coronal plane. FINDINGS: Limited CT sections are obtained the lung bases. The lung bases are clear. CT ABDOMEN: Liver: Scattered very small hypodensities are within the liver. These are nonspecific can be related to small hepatic cysts. There is a larger hepatic cyst measuring 1.2 cm in the inferior medial right lobe liver. Spleen: Normal Pancreas: Normal Adrenal glands: The adrenal glands are normal. Gallbladder: Surgically absent Kidneys: No masses are evident. No hydronephrosis is present. No cysts are present. No renal stone s are identified. Delayed images were obtained through the kidneys which remain unremarkable. Aorta: Normal Inferior vena cava: Normal. Loops of bowel distended with oral contrast. Unremarkable. Fecal debris is within the colon. Osseous structures appear unremarkable without lytic or sclerotic lesions. No expansile lesions are e vident. IMPRESSIONS: 1. No suspicious abnormality account for upper abdominal pain. 2. No suspicious changes to suggest metastatic disease.
== END | disposition home or self-care (01) ==
LOC: RADCTMAIN 09:37
PROVIDERS: ATTEND Internal Medicine Hematology & Oncology
DX: C50.411 Malignant neoplasm of upper-outer quadrant of right female breast (principal)
CPT/HCPCS: 82565; 84520; 74160; 36415; Q9967

== ENCOUNTER → 2023-03-17 | Outpatient (CLI) | payer MEDICARE ==
--- NOTE | 2023-03-17 11:09 | MM ---
Reason for Exam: Hx of breast cancer, conservation therapy. Last mammogram was performed 1 year(s) and 1 month(s) ago. Patient History: Menarche at age 17. First Full-Term at age 26. Hysterectomy at age 43. Postmenopausal. Patient has history of breast feeding. Breast cancer, right, age 65. Previous chest radiation therapy at age 65. Hormonal Contraceptives for 3 years from age 22 until age 25. Tamoxifen for 5 years from age 48 until age 53. Core Biopsy on the Right side. Excisional Biopsy on the Right side. 03/11/2020, Malignant Core Biopsy on the right side. 05/09/2008, Benign Core Biopsy on the left side. 12/22/2002, High risk Stereotactic Core Biopsy on the right side. Maternal grandmother had breast cancer, age 72. Prior Study Comparison: 01/27/2019 Bilateral Screening Mammogram, [facility]. 02/23/2020 Bilateral Diagnostic Mammogram, [facility]. 02/23/2020 Right Diagnostic Ultrasound, [facility]. 03/11/2020 Right Diagnostic Mammogram, [facility]. 05/17/2020 Right Diagnostic Ultrasound, [facility]. 02/17/2021 Bilateral Diagnostic Mammogram, [facility]. 02/18/2022 Bilateral MG 3D diag mammo w/cad CHARI, [facility]. Tissue Density: The breast tissue is heterogeneously dense. This may lower the sensitivity of mammography. Findings: Analyzed By CAD. Pattern appears symmetrical and stable. Surgical clips from the patient's lumpectomy within the right breast partially visualized. A marker is within the left breast. No significant interval change is evident. No suspicious groups of microcalcifications, spiculated or lobular masses, architectural distortion or other secondary signs of malignancy are mammographically apparent. Overall Assessment: Benign, BI-RAD 2 Management: Diagnostic Mammogram of both breasts in 1 year. A negative mammogram report should not preclude additional follow up of suspicious palpable abnormalities. Patient should continue monthly self breast exam. A clinical breast exam by your physician is recommended on an annual basis and results should be correlated with mammographic findings. Electronically signed and approved by: Maged Stanley D.O. Radiologis
== END | disposition home or self-care (01) ==
LOC: RADMAMWWP 10:45
PROVIDERS: ATTEND Radiology Radiation Oncology
DX: R92.333 Mammographic heterogeneous density, bilateral breasts (principal); Z08 Encounter for follow-up examination after completed treatment for malignant neoplasm; Z80.3 Family history of malignant neoplasm of breast; Z85.3 Personal history of malignant neoplasm of breast; Z78.0 Asymptomatic menopausal state
CPT/HCPCS: 77066; G0279; 77062

== ENCOUNTER → 2023-09-29 | Outpatient (CLI) | payer MEDICARE ==
--- NOTE | 2023-09-29 12:48 | CA ---
Transthoracic Echo Report Name: Eusebia Palacios Age: 68 Gender: F : 1955 Exam Date: 09/29/2023 08:42 Exam Location: [facility] Ht (in): 67 Wt (lb): 145 Ordering Physician: Chava Rodriguez DO Attending/Referring Phys: Flanging Roll Operator Isela Bills RDCS Procedure CPT: Indications: R00.2 PALPITATIONS I48.21 ATRIAL FIB Cardiac Hx: Technical Quality: Fair Contrast 1: Total Dose (mL): Contrast 2: Total Dose (mL): MEASUREMENTS (Male / Female) Normal Values 2D ECHO LV Diastolic Diameter PLAX 4.4 cm 4.2 - 5.9 / 3.9 - 5.3 cm LV Systolic Diameter PLAX 2.5 cm IVS Diastolic Thickness 1.1 cm 0.6 - 1.0 / 0.6 - 0.9 cm LVPW Diastolic Thickness 1.0 cm 0.6 - 1.0 / 0.6 - 0.9 cm LV Relative Wall Thickness 0.5 RV Internal Dim ED PLAX 3.5 cm LA Volume 59.5 cm??? 18 - 58 / 22 - 52 cm??? LA Volume Index 33.7 cm???/m??? 16 - 28 cm???/m??? M-MODE Aortic Root Diameter MM 2.9 cm LA Systolic Diameter MM 3.4 cm LA Ao Ratio MM 1.2 AV Cusp Separation MM 2.0 cm DOPPLER AV Peak Velocity 101.0 cm/s AV Peak Gradient 4.1 mmHg AV Mean Velocity 78.0 cm/s AV Mean Gradient 2.5 mmHg AV Velocity Time Integral 24.3 cm LVOT Peak Velocity 78.3 cm/s LVOT Peak Gradient 2.5 mmHg LVOT Velocity Time Integral 18.6 cm MV Area PHT 3.2 cm??? Mitral E Point Velocity 83.6 cm/s Mitral A Point Velocity 111.3 cm/s Mitral E to A Ratio 0.8 MV Deceleration Time 234.2 ms MV E' Velocity 5.9 cm/s Mitral E to MV E' Ratio 14.2 TR Peak Velocity 204.0 cm/s TR Peak Gradient 16.6 mmHg Right Ventricular Systolic Press 21.4 mmHg FINDINGS Left Ventricle Mildly increased left ventricular wall thickness. Left ventricular cavity size normal. Normal left ventricular systolic function with no obvious regional wall motion abnormalities. Grade 1 diastolic dysfunction. Left ventricular ejection fraction is estimated at 55-60 %. Right Ventricle Mild right ventricular dilatation. Normal right ventricular global systolic function. Right Atrium Normal right atrial size. Left Atrium Mildly increased left atrial volume. Mildly increased left atrial area. Mitral Valve Structurally normal mitral valve. Mitral valve thickened. Mild mitral annular calcification. Mild mitral regurgitation. Aortic Valve Trileaflet aortic valve. No aortic valve stenosis or regurgitation. Tricuspid Valve Structurally normal tricuspid valve. Mild tricuspid regurgitation. Pulmonic Valve Structurally normal pulmonic valve. Trace pulmonic regurgitation. Pericardium No pericardial effusion. Aorta Normal size aortic root and proximal ascending aorta. CONCLUSIONS Mildly increased left ventricular wall thickness Left ventricular ejection fraction 55-60% RVSP 21 Mild mitral regurgitation Mild mitral annular calcification Mild tricuspid regurgitation Previewed by: Dr. Jb Bob DO (Electronically Signed) Final Date: 29 September 2023 12:47
== END | disposition home or self-care (01) ==
LOC: RADECHMAIN 07:47
PROVIDERS: ATTEND Psychiatry & Neurology Neurology
DX: I08.1 Rheumatic disorders of both mitral and tricuspid valves (principal); R00.2 Palpitations; I48.21 Permanent atrial fibrillation
CPT/HCPCS: 93270; 93306

== ENCOUNTER → 2024-02-24 | Outpatient (CLI) | payer MEDICARE ==
--- NOTE | 2024-02-24 11:38 | US ---
EXAMINATION TYPE: US venous doppler duplex LE LT DATE OF EXAM: 02/24/2024 10:53 AM COMPARISON: NONE CLINICAL INDICATION: Female, 69 years old with history of I80.9 PHLEBITIS AND THROMBOPHLEBITIS M17.12 OSTEOARTHRITIS; pain behind knee, Prior Knee Sx last September 2022, Pain TECHNIQUE: The lower extremity deep venous system is examined utilizing real time linear array sonog roseline with graded compression, color doppler sonography, and spectral doppler. SIDE PERFORMED: Left FINDINGS: VESSELS IMAGED: Common Femoral Vein Deep Femoral Vein Greater Saphenous Vein * Femoral Vein Popliteal Vein Small Saphenous Vein * Proximal Calf Veins (* superficial vessels) Left Leg: Negative for DVT, Color Doppler imaging shows patency of the vessels. Spectral waveforms a re within normal limits. IMPRESSION: No ultrasound evidence for deep venous thrombosis. [facility], , 02/24/2024 11:36 AM
== END | disposition home or self-care (01) ==
LOC: RADUSWWP 09:52
PROVIDERS: ATTEND Orthopaedic Surgery Sports Medicine
DX: I80.9 Phlebitis and thrombophlebitis of unspecified site (principal)

== ENCOUNTER → 2024-09-11 | Outpatient (CLI) | payer MEDICARE ==
--- NOTE | 2024-09-11 17:20 | MM ---
Reason for Exam: Screening (asymptomatic). Last mammogram was performed 1 year(s) and 5 month(s) ago. Patient History: Menarche at age 17. First Full-Term at age 26. Hysterectomy at age 43. Postmenopausal. Patient has history of breast feeding. Breast cancer, right, age 65. Previous chest radiation therapy at age 65. Hormonal Contraceptives for 3 years from age 22 until age 25. Tamoxifen for 5 years from age 48 until age 53. Core Biopsy on the Right side. Excisional Biopsy on the Right side. 03/11/2020, Malignant Core Biopsy on the right side. 05/09/2008, Benign Core Biopsy on the left side. 12/22/2002, High risk Stereotactic Core Biopsy on the right side. Maternal grandmother had breast cancer, age 72. Prior Study Comparison: 02/17/2021 Bilateral Diagnostic Mammogram, [facility]. 02/18/2022 Bilateral MG 3D diag mammo w/cad CHARI, [facility]. 03/17/2023 Bilateral MG 3D diag mammo w/cad CHARI, [facility]. Tissue Density: The breasts are heterogeneously dense, which may obscure small masses. Findings: Analyzed By CAD. Focal asymmetry far posterior medial right breast may represent superimposition shadow but incompletely disperses on 3-D images. Further evaluation is recommended. Microclip site either side from prior biopsies. Otherwise, no significant change. Overall Assessment: Incomplete: need additional imaging evaluation, BI-RAD 0 Management: Special View Mammogram of the right breast. [facility] will attempt to contact patient to return for supplemental views and ultrasound if indicated. [facility], , 09/11/2024 5:17 PM. Electronically signed and approved by: Papi Ricks M.D. Radiologist
--- NOTE | 2024-09-11 21:08 | BD ---
EXAMINATION TYPE: Axial Bone Density DATE OF EXAM: 09/11/2024 CLINICAL HISTORY: 69 years old Female. ICD-10 CODE: Z78.0 POST NANI , Additional History: Height: 65 in Weight: 149 lbs FRAX RISK QUESTIONS: History of Fracture in Adulthood: ribs in 2020 Secondary Osteoporosis: 3. Menopause before 45: partial hysterectomy age 43 RISK FACTORS MEDICATIONS: Thyroid Medications: yes Which medication: Synthroid How Long: since 2010 EXAM MEASUREMENTS: Bone mineral densitometry was performed using the [employer] System. Bone mineral density as measured about the Lumbar spine is: ----- L1-L4(G/cm2): 1.071 T Score Values are as follows: ----- L1: -1.6 ----- L2: -1.6 ----- L3: -0.7 ----- L4: -0.3 ----- L1-L4: -0.9 Z Score Values are as follows: ----- L1: 0.0 ----- L2: -0.1 ----- L3: 0.9 ----- L4: 1.3 ----- L1-L4: 0.6 Bone mineral density has: Increased 4.1% since study of: 09/10/2022 Bone mineral density about the R hip (g/cm2): 1.019 Bone mineral density about the L hip (g/cm2): 0.969 T Score values are as follows: -----R Neck: -0.8 -----L Neck: -1.0 -----R Total: 0.1 -----L Total: -0.3 Z Score values are as follows: -----R Neck: 0.8 -----L Neck: 0.5 -----R Total: 1.4 -----L Total: 1.0 Bone mineral density has: Increased 5.5% since study of: 09/10/2022 FRAX%s: The graph provided illustrates a 14.0% chance for a major osteoporotic fx and a 1.2% chance f or the hips probability for fx in 10 years time. IMPRESSION: Normal (Values between +1 and -1 indicate normal bone mass). Note that measurements are bordering on osteopenia at the left hip. Consider repeating this study in 5 years or sooner if there is some new clinical indication. NOTE: T-SCORE=SD OF THE YOUNG ADULT MEAN. [facility], Workstation: [id number], 09/11/2024 9:06 PM
== END | disposition home or self-care (01) ==
LOC: RADMAMWWP 10:52
PROVIDERS: ATTEND Obstetrics & Gynecology
DX: Z12.31 Encounter for screening mammogram for malignant neoplasm of breast (principal); R92.333 Mammographic heterogeneous density, bilateral breasts; M85.89 Other specified disorders of bone density and structure, multiple sites; Z78.0 Asymptomatic menopausal state; Z92.0 Personal history of contraception; Z80.3 Family history of malignant neoplasm of breast
CPT/HCPCS: 77063; 77067; 77080

== ENCOUNTER → 2024-09-13 | Outpatient (CLI) | payer MEDICARE ==
--- NOTE | 2024-09-13 13:34 | MM ---
Reason for Exam: Additional evaluation requested from abnormal screening. Last screening mammogram was performed less than 1 month ago. Patient History: Menarche at age 17. First Full-Term at age 26. Hysterectomy at age 43. Postmenopausal. Patient has history of breast feeding. Breast cancer, right, age 65. Previous chest radiation therapy at age 65. Hormonal Contraceptives for 3 years from age 22 until age 25. Tamoxifen for 5 years from age 48 until age 53. Core Biopsy on the Right side. Excisional Biopsy on the Right side. 03/11/2020, Malignant Core Biopsy on the right side. 05/09/2008, Benign Core Biopsy on the left side. 12/22/2002, High risk Stereotactic Core Biopsy on the right side. Maternal grandmother had breast cancer, age 72. Prior Study Comparison: 08/03/2017 Bilateral Screening Mammogram, [facility]. 01/27/2019 Bilateral Screening Mammogram, [facility]. 02/23/2020 Bilateral Diagnostic Mammogram, [facility]. 03/11/2020 Right Diagnostic Mammogram, [facility]. 02/17/2021 Bilateral Diagnostic Mammogram, [facility]. 02/18/2022 Bilateral MG 3D diag mammo w/cad CHARI, [facility]. 03/17/2023 Bilateral MG 3D diag mammo w/cad CHARI, [facility]. 09/11/2024 Bilateral MG 3D screening mammo w/cad, [facility]. Tissue Density: Right: The breasts are heterogeneously dense, which may obscure small masses. Findings: Analyzed By CAD. Postsurgical and posttreatment changes right breast. Posterior-inferior focal asymmetry appears to disperse on additional views suggesting superimposition shadow. Precautionary short interval follow-up recommended given the appearance on screening exam. Overall Assessment: Probably benign, BI-RAD 3 Management: Diagnostic Mammogram of the right breast in 6 months. Results were given to the patient verbally at the time of exam. Patient should continue monthly self-breast exams. A clinical breast exam by your physician is recommended on an annual basis. This exam should not preclude additional follow-up of suspicious palpable abnormalities. [facility], , 09/13/2024 1:18 PM. Electronically signed and approved by: Papi Ricks M.D. Radiologist
== END | disposition home or self-care (01) ==
LOC: RADMAMWWP 12:20
PROVIDERS: ATTEND Obstetrics & Gynecology
DX: R92.8 Other abnormal and inconclusive findings on diagnostic imaging of breast (principal); R92.331 Mammographic heterogeneous density, right breast; Z78.0 Asymptomatic menopausal state; Z85.3 Personal history of malignant neoplasm of breast; Z80.3 Family history of malignant neoplasm of breast
CPT/HCPCS: 77061; 77065